=== PATIENT | female | born 1995 | race Caucasian/White ===

== ENCOUNTER 2017-01-22 22:49 | Inpatient (IN) | payer OTHER ==
[~2017-01-22] VITALS: Ht 160 cm; Wt 62.4 kg
[2017-01-23 00:30] VITALS: BP 133/61; PULSE 125; RESP 18
[2017-01-23 00:48] VITALS: Ht 160 cm; Wt 62.4 kg
[2017-01-23 01:48] VITALS: BP 115/56; RESP 20
[2017-01-23] MEDS ORDERED: HYDROCODONE/APAP (5/325) TAB PO PRN (02:00)
[2017-01-23] MEDS: HYDROCODONE/APAP (5/325) TAB PO PRN ×2 (02:13→20:12)
[2017-01-23] MEDS: DEXTROSE 5%-LR 1,000 ML IV SCH ×3 (02:14→15:50)
[2017-01-23] MEDS: CLINDAMYCIN 900 MG/D5W (PMX) 50 ML IVPB SCH ×4 (03:23→21:34)
[2017-01-23 04:00] VITALS: PULSE 91
[2017-01-23 06:20] LABS: BASOPHILS % 0.3 % (0.0-2.0); EOSINOPHILS # 0.1 10^3/ul (0.0-0.5); EOSINOPHILS % 0.9 % (0.0-7.0); HEMATOCRIT 29.6 % (37.0-47.0); HEMOGLOBIN 9.5 g/dl (12.0-16.0); LYMPHOCYTES # 1.3 10^3/ul (0.8-2.9); LYMPHOCYTES % 14.2 % (15.0-51.0); MEAN CORPUSCULAR HEMOGLOBIN 27.5 pg (29.0-33.0); MEAN CORPUSCULAR HGB CONC 32.1 g/dl (32.0-37.0); MEAN CORPUSCULAR VOLUME 85.8 fl (82.0-101.0); MEAN PLATELET VOLUME 10.7 fl (7.4-10.4); MONOCYTE # 0.4 10^3/ul (0.3-0.9); MONOCYTES % 4.8 % (0.0-11.0); NEUTROPHIL # 7.1 10^3/ul (1.6-7.5); NEUTROPHILS % 79.2 % (39.0-77.0); PLATELET COUNT 284 10^3/UL (140-415); RED BLOOD COUNT 3.45 10^6/ul (4.20-5.40); RED CELL DISTRIBUTION WIDTH 14.7 % (11.5-14.5); WHITE BLOOD COUNT 8.9 10^3/ul (4.8-10.8)
[2017-01-23 06:53] LABS: CALCIUM 8.2 mg/dl (8.4-10.2); CREATININE 0.61 mg/dl (0.44-1.00); POTASSIUM 3.6 mmol/L (3.5-5.1)
[2017-01-23] MEDS: ACETAMINOPHEN 325 MG TAB PO PRN ×2 (07:20→16:01)
[2017-01-23 07:39] VITALS: BP 102/58; RESP 14
--- NOTE | 2017-01-23 07:46 | HP ---
Date/Time of Note Date/Time of Note DATE: 01/23/17 TIME: 07:29 Assessment/Plan VTE Prophylaxis VTE Prophylaxis Intervention: ambulation VTE Contraindication Reason: anticoagulation not tolerated Lines/Catheters IV Catheter Type (from Nrs): Peripheral IV Central line still needed: No Urinary Cath still in place: No Assessment/Plan Chief Complaint/Hosp Course A: endometritis. S/P . P: Amp/Gent/Clinda IV antibiotics. Pt did not know her beta strep status so am treating as though she was positive and with 15-20% resistance to Cleocin felt I should add the Amp. Gentamicin dosing is once/day. If pt not improving would recc: repeat the CT scan with oral contrast with the idea of draining a fluid collection, if present. Problems: HPI/ROS Admit Date/Time Admit Date/Time Jan 23, 2017 at 00:13 Hx of Present Illness 21 y.o. s/p primary for distress/nuchal cord 01/08 at [place]. She is a patient of Dr Smith. Pt went to the ER at [place] last night and was transferred as she is capitated to [facility]. Pt reports that she started having abdominal pain as soon as she was discharged home and then started to have fevers up to 102 2 days ago. She did not go to her doctor as she did not have an appt yet. Pt denies nausea/vomiting/diarrhea or any other constitutional symptoms. She denies SANCHEZ's. WBC at [place] was 13.6, Hgb 11.4. She had a CT scan that appeared normal except for a questionable area 1.8 x 3.9 x 1.7 cm behind the uterus that was not able to be differentiated b/w a fluid collection vs a loop of bowel? Radiologist states a repeat pelvic CT with oral contrast would help delineate the area. ROS Constitutional: chills, febrile Neurologic: dizziness PMH/Family/Social Past Medical History Medical History: no pertinent history Past Surgical History 01/08 Family History Significant Family History: no pertinent family hx Social History Alcohol Use: none Smoking Status: Never smoker Drug Use: none Exam/Review of Systems Vital Signs Vitals Vital Signs Date Time Temp Pulse Resp B/P Pulse Ox O2 Delivery O2 Flow Rate FiO2 01/23/17 04:00 100.0 91 01/23/17 01:48 20 115/56 97 01/23/17 00:30 Room Air Intake and Output 01/22/17 01/22/17 01/23/17 15:00 23:00 07:00 Intake Total 425 ml Balance 425 ml Exam Constitutional: No oriented Gastrointestinal: surgical scars (Healed well without evidence of erythema, induration or swelling.), tender (2+ all over but no guarding or rebound.) 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 No erythema. Labs Result Diagram: 01/23/1751301/23/17513 Medications Medications Current Medications Acetaminophen 650 mg 650 mg Q4H PRN PO PAIN AND OR ELEVATED TEMP Last administered on 01/23/17 07:20; Admin Dose 650 MG; Start 01/23/17 at 02:00 Clindamycin HCl/ Dextrose 50 ml @ 50 mls/hr Q8 IVPB Last administered on 03:23; Admin Dose 50 MLS/HR; Start 01/23/17 at 02:30 Ceftriaxone Sodium 50 ml @ 100 mls/hr Q24H IVPB ; Start 01/23/17 at 17:00 Dextrose/Lactated Ringer's (D5-Lr) 1,000 ml @ 125 mls/hr Q8H IV Last administered on 01/23/17 02:14; Admin Dose 125 MLS/HR; Start 01/23/17 at 02: 00; Stop 01/24/17 at 02:00 Acetaminophen/ Hydrocodone Bitart ([place] (5/325)) 1 tab Q3H PRN PO PAIN LEVEL 1 -5; Start 01/23/17 at 02:00 Acetaminophen/ Hydrocodone Bitart ([place] (5/325)) 2 tab Q3H PRN PO PAIN LEVEL 6 -10 Last administered on 01/23/17 02:13; Admin Dose 2 TAB; Start 01/23/17 at 02:00 NGOC BAUTISTA MD Jan 23, 2017 07:41
[2017-01-23] MEDS ORDERED: GENTAMICIN 280 MG in SOD CHLORIDE 0.9% 100 ML IVPB SCH (10:00)
[2017-01-23] MEDS: AMPICILLIN 2 GM/NS (PMX) 100 ML IVPB SCH ×2 (12:29→19:01)
[2017-01-23 15:56] VITALS: BP 105/57; RESP 14
[2017-01-23] MEDS ORDERED: CEFTRIAXONE 1 GM/50 ML (PMX) 50 ML IVPB SCH (17:00)
[2017-01-23 19:26] VITALS: BP 104/51; RESP 18
[2017-01-24] MEDS: AMPICILLIN 2 GM/NS (PMX) 100 ML IVPB SCH ×6 (00:16→20:45)
[2017-01-24 02:00] VITALS: BP 94/52; RESP 18
[2017-01-24] MEDS: DEXTROSE 5%-LR 1,000 ML IV SCH (02:00)
[2017-01-24] MEDS: CLINDAMYCIN 900 MG/D5W (PMX) 50 ML IVPB SCH ×3 (05:19→22:28)
[2017-01-24 07:43] VITALS: BP 98/55; RESP 20
[2017-01-24] MEDS ORDERED: GENTAMICIN IV PER PHARMACY XX SCH (08:30)
--- NOTE | 2017-01-24 08:57 | PN ---
Date/Time of Note Date/Time of Note DATE: 01/24/17 TIME: 08:53 Assessment/Plan VTE Prophylaxis VTE Prophylaxis Intervention: ambulation, SCD's Lines/Catheters IV Catheter Type (from Nrs): Peripheral IV Urinary Cath still in place: No Assessment/Plan Chief Complaint/Hosp Course s/p c/s 2 weeks ago. endometritis r/o abdominal abscess Problems: Assessment/Plan Abx: Amp/Gent/Clinda CT scan still not read officially Subjective 24 Hr Interval Summary Free Text/Dictation Denies pain. had fever last pm, no BM for 2 days, but reports normal BM since c/ s. she is happy that her pain has resolved, but upset that she is from baby. the importance of treatment d/w pt Exam/Review of Systems Vital Signs Vitals Vital Signs Date Time Temp Pulse Resp B/P Pulse Ox O2 Delivery O2 Flow Rate FiO2 01/24/17 07:43 97.7 79 20 98/55 99 01/23/17 00:30 Room Air Intake and Output 01/23/17 01/23/17 01/24/17 15:00 23:00 07:00 Intake Total 757 ml 2175 ml 1150 ml Output Total 700 ml Balance 57 ml 2175 ml 1150 ml Exam Breast: no evidence of mastitis, soft, + engorged. she has breast pump next to her Abdomen: soft, mild tenderness Incision: looks well healed without any evidence of infection Back: no CVA tenderness Ext: no sign of DVT Results Result Diagram: 01/23/17 0514 01/23/17 0514 Results 24 hrs Laboratory Tests Test 01/23/17 20:10 Random Gentamicin Level < 0.6 Medications Medications Current Medications Acetaminophen 650 mg 650 mg Q4H PRN PO PAIN AND OR ELEVATED TEMP Last administered on 01/23/17 16:01; Admin Dose 650 MG; Start 01/23/17 at 02:00 Clindamycin HCl/ Dextrose (Cleocin 900 Mg/ D5W (Pmx)) 50 ml @ 50 mls/hr Q8 IVPB Last administered on 01/24/17 05:19; Admin Dose 50 MLS/HR; Start 01/23/17 at 02:30 Acetaminophen/ Hydrocodone Bitart ([place] (5/325)) 1 tab Q3H PRN PO PAIN LEVEL 1 -5; Start 01/23/17 at 02:00 Acetaminophen/ Hydrocodone Bitart 2 tab 2 tab Q3H PRN PO PAIN LEVEL 6-10 Last administered on 01/23/17 20:12; Admin Dose 2 TAB; Start 01/23/17 at 02:00 Gentamicin Sulfate 280 mg/ Sodium Chloride 107 ml @ 107 mls/hr DAILY IVPB Last administered on 01/23/17 09:47; Admin Dose 107 MLS/HR; Start 01/23/17 at 10:00 Ampicillin (Ampicillin 2 Gm/ NS (Pmx)) 100 ml @ 100 mls/hr Q6 IVPB Last administered on 01/24/17 06:29; Admin Dose 100 MLS/HR; Start 01/23/17 at 12: 00 POLLO LABOY MD Jan 24, 2017 08:57
[2017-01-24] MEDS: GENTAMICIN 100 MG/50 ML NS IVPB SCH ×2 (10:50→18:17)
[2017-01-24 14:16] VITALS: BP 98/53; RESP 20
[2017-01-24 20:02] VITALS: BP 91/52; RESP 18
[2017-01-24] MEDS: HYDROCODONE/APAP (5/325) TAB PO PRN (22:30)
[2017-01-25] MEDS: AMPICILLIN 2 GM/NS (PMX) 100 ML IVPB SCH ×6 (00:37→20:38)
[2017-01-25 02:00] VITALS: BP 100/50; RESP 18
[2017-01-25] MEDS: GENTAMICIN 100 MG/50 ML NS IVPB SCH ×2 (02:21→10:05)
[2017-01-25] MEDS: CLINDAMYCIN 900 MG/D5W (PMX) 50 ML IVPB SCH ×3 (05:52→22:00)
[2017-01-25 07:48] VITALS: BP 98/56; RESP 20
--- NOTE | 2017-01-25 08:36 | PN ---
Date/Time of Note Date/Time of Note DATE: 01/25/17 TIME: 08:33 Assessment/Plan VTE Prophylaxis VTE Prophylaxis Intervention: ambulation Lines/Catheters IV Catheter Type (from Nrsg): Peripheral IV Urinary Cath still in place: No Assessment/Plan Chief Complaint/Hosp Course s/p c/s 2 weeks ago. endometritis r/o abdominal abscess Afebrile for > 24 hours Problems: Assessment/Plan CT abdomen and pelvic in am with oral contrast with possible CT guided drainage of abscess CBC in am Subjective 24 Hr Interval Summary Free Text/Dictation she c/o LAP. denies fever Exam/Review of Systems Vital Signs Vitals Vital Signs Date Time Temp Pulse Resp B/P Pulse Ox O2 Delivery O2 Flow Rate FiO2 01/25/17 07:48 97.7 67 20 98/56 100 01/23/17 00:30 Room Air Intake and Output 01/24/17 01/24/17 01/25/17 15:00 23:00 07:00 Intake Total 250 ml 1860 ml 800 ml Output Total 450 ml Balance 250 ml 1410 ml 800 ml Exam NAD Abdomen: soft, mild tenderness Results Result Diagram: 01/23/17 0514 01/23/17 0514 Results 24 hrs Laboratory Tests Test 01/25/17 01:15 01/25/17 03:25 Gentamicin Level Trough 1.1 Gentamicin Level Peak 8.0 Medications Medications Current Medications Acetaminophen 650 mg 650 mg Q4H PRN PO PAIN AND OR ELEVATED TEMP Last administered on 01/23/17 16:01; Admin Dose 650 MG; Start 01/23/17 at 02:00 Clindamycin HCl/ Dextrose (Cleocin 900 Mg/ D5W (Pmx)) 50 ml @ 50 mls/hr Q8 IVPB Last administered on 01/25/17 05:52; Admin Dose 50 MLS/HR; Start 01/23/17 at 02:30 Acetaminophen/ Hydrocodone Bitart ([place] (5/325)) 1 tab Q3H PRN PO PAIN LEVEL 1 -5; Start 01/23/17 at 02:00 Acetaminophen/ Hydrocodone Bitart 2 tab 2 tab Q3H PRN PO PAIN LEVEL 6-10 Last administered on 01/24/17 22:30; Admin Dose 2 TAB; Start 01/23/17 at 02:00 Ampicillin (Ampicillin 2 Gm/ NS (Pmx)) 100 ml @ 100 mls/hr Q4 IVPB Last administered on 01/25/17t 08:05; Admin Dose 100 MLS/HR; Start 01/24/17 at 09: 00 Gentamicin Sulfate (Gentamicin Iv Per Pharmacy) GENTAMICIN PER PHARM... NOTE XX ; Start 01/24/17 at 08:30 POLLO LABOY MD Jan 25, 2017 08:36
[2017-01-25] MEDS ORDERED: BARIUM SULF 2% 450 ML BTL (BERRY SMOOTHIE) PO ONE (09:00)
[2017-01-25 13:38] VITALS: BP 118/74; RESP 20
[2017-01-25] MEDS: GENTAMICIN 80 MG/NS (PMX) 50 ML IVPB SCH (18:00)
[2017-01-25 19:36] VITALS: BP 94/57; RESP 18
[2017-01-25] MEDS: HYDROCODONE/APAP (5/325) TAB PO PRN (20:42)
[2017-01-26] MEDS: AMPICILLIN 2 GM/NS (PMX) 100 ML IVPB SCH ×6 (01:36→20:32)
[2017-01-26] MEDS: GENTAMICIN 80 MG/NS (PMX) 50 ML IVPB SCH ×3 (01:37→18:31)
[2017-01-26 02:00] VITALS: BP 97/54; RESP 18
[2017-01-26] MEDS: CLINDAMYCIN 900 MG/D5W (PMX) 50 ML IVPB SCH ×3 (05:33→21:46)
[2017-01-26 06:13] LABS: BASOPHILS % 0.7 % (0.0-2.0); EOSINOPHILS # 0.2 10^3/ul (0.0-0.5); EOSINOPHILS % 5.3 % (0.0-7.0); HEMATOCRIT 29.8 % (37.0-47.0); HEMOGLOBIN 9.5 g/dl (12.0-16.0); LYMPHOCYTES # 1.8 10^3/ul (0.8-2.9); LYMPHOCYTES % 39.4 % (15.0-51.0); MEAN CORPUSCULAR HEMOGLOBIN 27.1 pg (29.0-33.0); MEAN CORPUSCULAR HGB CONC 31.9 g/dl (32.0-37.0); MEAN CORPUSCULAR VOLUME 85.1 fl (82.0-101.0); MONOCYTE # 0.3 10^3/ul (0.3-0.9); MONOCYTES % 7.1 % (0.0-11.0); NEUTROPHIL # 2.1 10^3/ul (1.6-7.5); NEUTROPHILS % 46.8 % (39.0-77.0); PLATELET COUNT 338 10^3/UL (140-415); WHITE BLOOD COUNT 4.5 10^3/ul (4.8-10.8)
[2017-01-26 06:42] LABS: CREATININE 0.55 mg/dl (0.44-1.00)
[2017-01-26 08:00] VITALS: BP 88/45; RESP 18
[2017-01-26 13:38] VITALS: BP 95/49; RESP 14
--- NOTE | 2017-01-26 18:39 | RADRPT ---
PROCEDURE: CT abdomen and pelvis without contrast. CLINICAL INDICATION: Abdominal pain with recent TECHNIQUE: CT scan of the abdomen and pelvis without contrast was performed on a multi-slice CT [facility] . Sagittal and coronal reformatted images were obtained from the axial source images. One or more of the following dose reduction techniques were used: - Automated exposure control. - Adjustment of the mA and/or kV according to patient size. Use of iterative reconstruction technique. DLP 496.1 mGycm. CTDIvol 8.4 mGy COMPARISON: None. FINDINGS: The lung bases are clear. Postsurgical changes are seen in the anterior lower abdominal wall from recent . There is f at stranding is seen along the incisional site with no subcutaneous air, fluid, or visible hemorrhag e. There is also trace fat stranding within the abdominal wall musculature itself. There is a mildly enlarged edematous appearance the uterine parenchyma there is trace high-density f luid seen within the uterine cavity consistent with likely small hemorrhage without evidence of hem atoma. No evidence of hematoma around or anterior to the uterus. Trace fluid is present in the fat a nterior to the uterus. There is no evidence of fluid collection. There is uniform density of the liver with no focal lesion or biliary ductal dilatation. The gallbl adder is unremarkable without inflammation. The spleen is unremarkable without mass. The adrenal glands are within normal limits without mass. The kidneys are symmetric bilaterally without hydronephrosis or perinephric stranding. There are no renal or ureteral calculi. The pancreas is unremarkable without focal lesion or surrounding inflammatory changes. There is no bowel obstruction or focal bowel inflammation. The appendix is unremarkable. There is a fecal filled colon. There is no free air or free fluid. There are no enlarged lymph nodes. The aorta is unremarkable and there is no acute osseous abnormality. IMPRESSION: Surgical changes of is seen with trace fat stranding of subcutaneous fat. There is no evid ence of fluid collection, a significant inflammation, or hematoma within the pelvis. Trace hemorrhag ic fluid is seen within the uterine cavity with a trace amount of fluid seen anterior to the uterine margin. No evidence of bowel obstruction or inflammation. There is a fecal filled colon. Date that RPTAT: AA .Naun Linares MD, MD Date Time Electronically viewed and signed by .Naun Linares MD, MD on 01/26/2017 18:39 .J/
--- NOTE | 2017-01-26 18:59 | PN ---
Date/Time of Note Date/Time of Note DATE: 01/26/17 TIME: 18:54 Assessment/Plan VTE Prophylaxis VTE Prophylaxis Intervention: ambulation Lines/Catheters IV Catheter Type (from [facility]): Peripheral IV Urinary Cath still in place: No Assessment/Plan Chief Complaint/Hosp Course s/p c/s 2 weeks ago. endometritis r/o abdominal abscess Afebrile for > 24 hours Problems: Assessment/Plan consider d/c home in am Subjective 24 Hr Interval Summary Free Text/Dictation reports she feels better. less pain. Exam/Review of Systems Vital Signs Vitals Vital Signs Date Time Temp Pulse Resp B/P Pulse Ox O2 Delivery O2 Flow Rate FiO2 01/26/17 13:38 97.7 63 14 95/49 98 01/23/17 00:30 Room Air Intake and Output 01/25/17 01/25/17 01/26/17 15:00 23:00 07:00 Intake Total 200 ml 2270 ml 900 ml Output Total 1050 ml Balance 200 ml 1220 ml 900 ml Exam Constitutional: alert, oriented, well developed Psych: nl mood/affect, no complaints, other Head: other (not examined) Eyes: EOMI, icteric, nl conjunctiva, nl lids, nl sclera, other ENMT: nl external ears & nose, nl lips & teeth, nl nasal mucosa & septum Neck: non-tender, other, supple Respiratory: clear to auscultation, normal air movement Cardiovascular: nl pulses, regular rate and rhythm Gastrointestinal: nl liver, spleen, non-tender, other (soft and mild tenderness ), soft Musculoskeletal: nl extremities to inspection, nl gait and stance Extremities: normal pulses 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, nl mental status, nl speech, nl strength Skin: nl turgor, No rash or lesions Lymph: nl lymph nodes Results Result Diagram: 01/26/1752601/26/17526 Results 24 hrs Laboratory Tests Test 01/26/17 05:27 White Blood Count 4.5 #L Red Blood Count 3.50 L Hemoglobin 9.5 L Hematocrit 29.8 L Mean Corpuscular Volume 85.1 Mean Corpuscular Hemoglobin 27.1 L Mean Corpuscular Hemoglobin Concent 31.9 L Red Cell Distribution Width 15.0 H Platelet Count 338 Mean Platelet Volume 11.0 H Neutrophils % 46.8 Lymphocytes % 39.4 Monocytes % 7.1 Eosinophils % 5.3 Basophils % 0.7 Nucleated Red Blood Cells % 0.0 Neutrophils # 2.1 Lymphocytes # 1.8 Monocytes # 0.3 Eosinophils # 0.2 Basophils # 0.0 Nucleated Red Blood Cells # 0.0 Blood Urea Nitrogen 10 Creatinine 0.55 Medications Medications Current Medications Acetaminophen 650 mg 650 mg Q4H PRN PO PAIN AND OR ELEVATED TEMP Last administered on 01/23/17 16:01; Admin Dose 650 MG; Start 01/23/17 at 02:00 Clindamycin HCl/ Dextrose (Cleocin 900 Mg/ D5W (Pmx)) 50 ml @ 50 mls/hr Q8 IVPB Last administered on 01/26/17 15:17; Admin Dose 50 MLS/HR; Start 01/23/17 at 02:30 Acetaminophen/ Hydrocodone Bitart ([place] (5/325)) 1 tab Q3H PRN PO PAIN LEVEL 1 -5; Start 01/23/17 at 02:00 Acetaminophen/ Hydrocodone Bitart 2 tab 2 tab Q3H PRN PO PAIN LEVEL 6-10 Last administered on 01/25/17 20:42; Admin Dose 2 TAB; Start 01/23/17 at 02:00 Ampicillin (Ampicillin 2 Gm/ NS (Pmx)) 100 ml @ 100 mls/hr Q4 IVPB Last administered on 01/26/17 17:18; Admin Dose 100 MLS/HR; Start 01/24/17 at 09: 00 Gentamicin Sulfate GENTAMICIN PER PHARM... NOTE XX ; Start 01/24/17 at 08:30 Gentamicin Sulfate (Gentamicin) 50 ml @ 104 mls/hr Q8H IVPB Last administered on 01/26/17 18:31; Admin Dose 104 MLS/HR; Start 01/25/17 at 18:00 Miscellaneous Information (*Rx Drug Level Order Reminder*) GENTAMICIN TROUGH AT 0... ONCE XX ; Start 01/27/17 at 08:00; Stop 01/27/17 at 12:00 POLLO LABOY MD Jan 26, 2017 18:59
[2017-01-26] MEDS: HYDROCODONE/APAP (5/325) TAB PO PRN (19:47)
[2017-01-26 20:00] VITALS: BP 99/52; RESP 18
[2017-01-27] MEDS: AMPICILLIN 2 GM/NS (PMX) 100 ML IVPB SCH ×5 (00:47→17:17)
[2017-01-27] MEDS: GENTAMICIN 80 MG/NS (PMX) 50 ML IVPB SCH ×3 (02:05→18:59)
[2017-01-27] MEDS: HYDROCODONE/APAP (5/325) TAB PO PRN (02:09)
[2017-01-27 02:26] VITALS: BP 98/53; RESP 19
[2017-01-27] MEDS: CLINDAMYCIN 900 MG/D5W (PMX) 50 ML IVPB SCH ×2 (06:04→14:27)
--- NOTE | 2017-01-27 07:55 | DS ---
Date/Time of Note Date/Time of Note DATE: 01/27/17 TIME: 07:50 Discharge Summary Admission/Discharge Info Admit Date/Time Jan 23, 2017 at 00:13 Discharge Date/Time 01/27/2017 Discharge Diagnosis Endometritis Patient Condition: Good Consults none Procedures IV Abx. CT scan Hx of Present Illness 21 y.o. s/p primary for distress/nuchal cord 01/08 at [place]. She is a patient of Dr Smith. Pt went to the ER at [place] last night and was transferred as she is capitated to [facility]. Pt reports that she started having abdominal pain as soon as she was discharged home and then started to have fevers up to 102 2 days ago. She did not go to her doctor as she did not have an appt yet. Pt denies nausea/vomiting/diarrhea or any other constitutional symptoms. She denies SANCHEZ's. WBC at [place] was 13.6, Hgb 11.4. She had a CT scan that appeared normal except for a questionable area 1.8 x 3.9 x 1.7 cm behind the uterus that was not able to be differentiated b/w a fluid collection vs a loop of bowel? Radiologist states a repeat pelvic CT with oral contrast would help delineate the area. she received IV Amp/Gent/Clinda. Repeat CT was normal. her pain resolved Hospital Course she received IV Amp/Gent/Clinda. Repeat CT was normal. her pain resolved, fever resolved. normal WBC she has benign exam today. Abdomen is soft and not tender I told patient to check temp TID for 10 days and go to ER if Temp > 100 Home Meds No Active Prescriptions or Reported Meds Primary Care Provider [facility] Time spent on discharge: > 30 minutes POLLO LABOY MD Jan 27, 2017 07:55
[2017-01-27 08:02] VITALS: BP 92/52; RESP 14
[2017-01-27 13:26] VITALS: BP 101/54; RESP 14
== END 2017-01-27 20:35 | disposition home or self-care (01) | DRG 776 ==
LOC: MS2 01-23 00:13
PROVIDERS: ADMIT Obstetrics & Gynecology; ATTEND Obstetrics & Gynecology
DX: O86.12 Endometritis following delivery (principal); N71.9 Inflammatory disease of uterus, unspecified
CPT/HCPCS: 74176; 80048; 80170; 82565; 84520; 85025; 87081; J0290; J1580; J7121

== ENCOUNTER 2018-10-28 11:35 | Emergency (ER) | payer OTHER ==
[~2018-10-28] VITALS: Ht 160 cm; Wt 58.4 kg
[~2018-10-28 11:35] MED LIST: ACET500C5 PO; CEPH-442 PO; CEPH-443 PO; HYDR-4011 PO; NO MEDS
[2018-10-28 11:39] VITALS: BP 120/57; PULSE 80; RESP 18; Ht 160 cm; Wt 58.4 kg
--- NOTE | 2018-10-28 12:42 | ERD ---
ER Documentation Chief Complaint Chief Complaint vag bleed x today 6 weeks HPI Patient is a 23-year-old female, G2, P1, approximately 6 weeks , presents to the ER for concerns of vaginal bleeding which started today. Patient reports spotting. She reports minimal bleeding. Patient has no fevers or chills. Patient has no nausea or vomiting. Patient reports occasional pelvic cramps. Patient denies any dysuria or frequency, urgency or hematuria. No recent travel. No sick contacts. 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 Patient's last menstrual period was 6-17-19. ROS All systems reviewed and are negative except as per history of present illness. Medications Home Meds Reported Medications [No Meds] No Conflict Check 08/19/17 Allergies Allergies: Coded Allergies: No Known Allergy (Unverified , 08/19/17) PMhx/Soc History of Surgery: Yes () Anesthesia Reaction: No Hx Neurological Disorder: No Hx Respiratory Disorders: No Hx Cardiac Disorders: No Hx Psychiatric Problems: No Hx Miscellaneous Medical Probl: No Hx Alcohol Use: No Hx Substance Use: No Hx Tobacco Use: No Smoking Status: Current every day smoker FmHx Family History: No diabetes Physical Exam Vitals Vital Signs Date Temp Pulse Resp B/P (MAP) Pulse Ox O2 O2 Flow FiO2 Time Delivery Rate 10/28/18 97.8 80 18 120/57 99 11:39 (78) Physical Exam GENERAL: Well-developed, well-nourished female. Appears in no acute distress. HEAD: Normocephalic, atraumatic. EYES: Pupils are equally reactive bilaterally. EOMs grossly intact. No conjunctival erythema. NECK: Supple. No meningismus. Normal range of motion of the neck. LUNG: Clear to auscultation bilaterally. No rhonchi, wheezing, rales or coarse breath sounds. HEART: Regular rate and rhythm. No murmurs, rubs or gallops. ABDOMEN: Soft, nontender, and nondistended. Positive bowel sounds in all four quadrants. No rebound tenderness, no guarding. (-) McBurney's point tenderness. No CVA tenderness. EXTREMITIES: Equal pulses bilaterally. No peripheral clubbing, cyanosis or edema. No unilateral leg swelling. NEUROLOGIC: Alert and oriented. Moving all four extremities without any difficulty. Normal speech. Steady gait. SKIN: Normal color. Warm and dry. No rashes or lesions. Result Diagram: 10/28/18 1220 Results 24 hrs Laboratory Tests Test 10/28/18 12:20 White Blood Count 7.1 10^3/ul Red Blood Count 4.74 10^6/ul Hemoglobin 14.2 g/dl Hematocrit 43.7 % Mean Corpuscular Volume 92.2 fl Mean Corpuscular Hemoglobin 30.0 pg Mean Corpuscular Hemoglobin Concent 32.5 g/dl Red Cell Distribution Width 12.7 % Platelet Count 236 10^3/UL Mean Platelet Volume 11.7 fl Immature Granulocytes % 0.300 % Neutrophils % 71.4 % Lymphocytes % 21.3 % Monocytes % 5.8 % Eosinophils % 0.8 % Basophils % 0.4 % Nucleated Red Blood Cells % 0.0 /100WBC Immature Granulocytes # 0.020 10^3/ul Neutrophils # 5.1 10^3/ul Lymphocytes # 1.5 10^3/ul Monocytes # 0.4 10^3/ul Eosinophils # 0.1 10^3/ul Basophils # 0.0 10^3/ul Nucleated Red Blood Cells # 0.0 10^3/ul Urine Color YELLOW Urine Clarity CLOUDY Urine pH 6.0 Urine Specific [place] 1.028 Urine Ketones NEGATIVE mg/dL Urine Nitrite NEGATIVE mg/dL Urine Bilirubin NEGATIVE mg/dL Urine Urobilinogen NEGATIVE mg/dL Urine Leukocyte Esterase 1+ Alexandre/ul Urine Microscopic RBC 64 /HPF Urine Microscopic WBC 24 /HPF Urine Squamous Epithelial Cells MANY /HPF Urine Mucus MANY /HPF Urine Hemoglobin 3+ mg/dL Urine Glucose NEGATIVE mg/dL Urine Total Protein 1+ mg/dl Beta HCG, Quantitative 4958.0 mIU/ml Procedures/MDM ED COURSE: The patient was stable throughout ED course. I kept the patient and/or family informed of laboratory and diagnostic imaging results throughout the ED course. DIAGNOSTIC IMAGING: Read by radiologist. Patient: BRENDEN BURCH : 1995 Age: 23 Sex: F MR #: [id number] DOS: 10/28/18 1207 Ordering MD: ELLY MORATAYA PA-C Location: [facility] Room/Bed: PROCEDURE: US OB. CLINICAL INDICATION: Vaginal bleeding. TECHNIQUE: Transabdominal and transvaginal sonographic evaluation of the uterus was performed. COMPARISON: None. FINDINGS: There is a single intrauterine gestation containing yolk sac. There is no visible pole. Mean sac diameter measures 6 mm. Estimated gestational age based on this examination is 5 weeks and 1 day +/- 3 days. Estimated date of confinement based on this examination is 06/29/2019. Right ovary measures 3 x 1.9 x 2 cm. Left ovary measures 3.4 x 2.1 x 2.8 cm. There is a 1.7 cm complex left ovarian cyst, may represent hemorrhagic corpus luteal cyst. No suspicious adnexal masses are seen. There is no free pelvic fluid. IMPRESSION: 1. Single intrauterine gestation containing yolk sac with estimated gestational age of 5 weeks and 1 day +/- 3 days. No visible pole. Recommend follow-up pelvic sonogram in 7 - 10 days for reevaluation and assess viability. 2. Complex left ovarian cyst, suggestive of hemorrhagic corpus luteal cyst. RPTAT:HAJM Physician Manjit Date Time Electronically viewed and signed by Dinora Roman Physician on 10/28/2018 14:58 RM/ CC: ELLY MORATAYA PA-C [id number] PROCEDURES: None. MEDICAL DECISION MAKING: This is a 23-year-old female, G2, P1, presents the ER for concerns of vaginal bleeding. Vital signs were reviewed. Patient was afebrile. Patient was hemodynamically stable. Urine test was positive. Patient's beta-hCG is 4958. Patient blood type was noted to be O+, no indication for RhoGam at this time. CBC showed no evidence of systemic infection or severe anemia. Pelvic US showed 1. Single intrauterine gestation containing yolk sac with estimated gestational age of 5 weeks and 1 day +/- 3 days. No visible pole. Recommend follow-up pelvic sonogram in 7 - 10 days for reevaluation and assess viability. 2. Complex left ovarian cyst, suggestive of hemorrhagic corpus luteal cyst. Given these findings, the patients presentation is most consistent with threatened and UTI. I low suspicion for ectopic , ruptured ectopic , molar , subchorionic hematoma, spontaneous , incomplete , complete , missed , placental abruption, placental previa, vasa previa, uterine rupture, anembyronic . Patient was nontoxic, [id number] prior to discharge. Patient advised to return in 2 days for repeat beta-hCG and/or ultrasound. PRESCRIPTIONS: Keflex DISCHARGE: At this time, patient is stable for discharge and outpatient management. I had a conversation at length with the patient about the concerns of vaginal bleeding during the 1st trimester of . Patient and/or family understands that her vaginal bleeding can be a normal finding or a sign of miscarriage. I have instructed the patient to follow-up with her OBGYN in 1-2 days for further monitoring including a repeat b-HCG level. I have instructed the patient to promptly return to the ER at any time for any new or worsening symptoms including increased pain, nausea, vomiting, continued bleeding, weakness, syncope or fever. The patient and/or family expressed understanding of and agreement with this plan. All questions were answered. Home care instructions were provided. Disclaimer: Inadvertent spelling and grammatical errors are likely due to EHR/dictation software use and do not reflect on the overall quality of patient care. Also, please note that the electronic time recorded on this note does not necessarily reflect the actual time of the patient encounter. Departure Diagnosis: Primary Impression: Vaginal bleeding in patient at less than 20 weeks ges... Additional Impression: UTI (urinary tract infection) Urinary tract infection type: site unspecified Hematuria presence: without hematuria Qualified Codes: N39.0 - Urinary tract infection, site not specified Condition: Fair Patient Instructions: Bleeding During Early Referrals: [facility] (PCP) Additional Instructions: Call your primary care doctor TOMORROW for an appointment during the next 1-2 days.See the doctor sooner or return here if your condition worsens before your appointment time. ELLY MORATAYA PA-C Oct 28, 2018 12:42
== END 2018-10-28 15:22 | disposition home or self-care (01) ==
LOC: FTE 11:35
DX: O20.9 Hemorrhage in early pregnancy, unspecified (principal); O23.41 Unspecified infection of urinary tract in pregnancy, first trimester; O99.331 Smoking (tobacco) complicating pregnancy, first trimester; F17.210 Nicotine dependence, cigarettes, uncomplicated; R10.2 Pelvic and perineal pain; Z3A.01 Less than 8 weeks gestation of pregnancy
CPT/HCPCS: 36415; 76801; 76817; 81001; 84702; 85025; 86900; 86901; 87086; Z7502

== ENCOUNTER 2018-10-30 19:24 | Emergency (ER) | payer OTHER ==
[~2018-10-30] VITALS: Ht 157.5 cm; Wt 60.4 kg
[2018-10-30 19:29] VITALS: Ht 157.5 cm; Wt 60.4 kg
[2018-10-30] MEDS ORDERED: HYDROCODONE/APAP (5/325) TAB PO STA (20:11)
--- NOTE | 2018-10-30 20:17 | ERD ---
ER Documentation Chief Complaint Chief Complaint AP AND VAGINAL BLEEDING X 3 DAYS. 5 WKS . HPI 23-year-old G2, P1 female with last menstrual period of September 18 presents with 3- day complaint of vaginal bleeding and cramping. States that she is gone through 6 pads in the last 3 days but when he has intensified today. States that she was just on the bathroom and thinks that she might of passed products of conception as there is what appears to be a small embryo on the toilet. Patient denies any fevers, chills, dysuria, hematuria, lightheadedness, palpitations, chest pain, shortness of breath. States that she does have an OB. ROS All systems reviewed and are negative except as per history of present illness. Medications Home Meds Active Scripts Hydrocodone/Acetaminophen ([place] 5-325 Tablet) 1 Each Tablet, 1-2 TAB PO Q6H PRN for PAIN, #15 TAB Prov:LESLYE NOEL 10/30/18 Cephalexin* (Keflex*) 500 Mg Capsule, 500 MG PO BID for 5 Days, CAP Prov:ELLY MORATAYA PA-C 10/28/18 Reported Medications [No Meds] No Conflict Check 08/19/17 Discontinued Scripts Cephalexin* (Keflex*) 250 Mg Capsule, 250 MG PO Q8, #21 CAP Prov:ELLY MORATAYA PA-C 10/28/18 Cephalexin* (Keflex*) 500 Mg Capsule, 250 MG PO QID for 5 Days, CAP Prov:ELLY MORATAYA PA-C 10/28/18 Allergies Allergies: Coded Allergies: No Known Allergy (Unverified , 08/19/17) PMhx/Soc History of Surgery: Yes () Anesthesia Reaction: No Hx Neurological Disorder: No Hx Respiratory Disorders: No Hx Cardiac Disorders: No Hx Psychiatric Problems: No Hx Miscellaneous Medical Probl: No Hx Alcohol Use: No Hx Substance Use: No Hx Tobacco Use: No FmHx Family History: No diabetes, No coronary disease, No other Physical Exam Vitals Vital Signs Date Temp Pulse Resp B/P (MAP) Pulse Ox O2 O2 Flow FiO2 Time Delivery Rate 10/30/18 97.7 74 16 109/56 99 Room Air 22:59 (73) 10/30/18 98.6 86 20 129/58 98 19:29 (81) Physical Exam Const: No acute distress Head: Atraumatic Eyes: Normal Conjunctiva ENT: Normal External Ears, Nose and Mouth. Neck: Full range of motion. No meningismus. Resp: Clear to auscultation bilaterally Cardio: Regular rate and rhythm, no murmurs Abd: Soft, non tender, non distended. Normal bowel sounds Skin: No petechiae or rashes Back: No midline or flank tenderness Ext: No cyanosis, or edema Neur: Awake and alert Psych: Normal Mood and Affect Result Diagram: 10/30/182044 Results 24 hrs Laboratory Tests Test 10/30/18 20:45 10/30/18 20:49 White Blood Count 8.3 10^3/ul Red Blood Count 4.58 10^6/ul Hemoglobin 13.5 g/dl Hematocrit 41.6 % Mean Corpuscular Volume 90.8 fl Mean Corpuscular Hemoglobin 29.5 pg Mean Corpuscular Hemoglobin Concent 32.5 g/dl Red Cell Distribution Width 12.7 % Platelet Count 235 10^3/UL Mean Platelet Volume 11.7 fl Immature Granulocytes % 0.200 % Neutrophils % 71.3 % Lymphocytes % 21.7 % Monocytes % 4.8 % Eosinophils % 1.6 % Basophils % 0.4 % Nucleated Red Blood Cells % 0.0 /100WBC Immature Granulocytes # 0.020 10^3/ul Neutrophils # 5.9 10^3/ul Lymphocytes # 1.8 10^3/ul Monocytes # 0.4 10^3/ul Eosinophils # 0.1 10^3/ul Basophils # 0.0 10^3/ul Nucleated Red Blood Cells # 0.0 10^3/ul Beta HCG, Quantitative 7744.9 mIU/ml Urine Color RED Urine Clarity CLOUDY Urine pH 7.0 Urine Specific [place] 1.021 Urine Ketones NEGATIVE mg/dL Urine Nitrite NEGATIVE mg/dL Urine Bilirubin NEGATIVE mg/dL Urine Urobilinogen 1+ mg/dL Urine Leukocyte Esterase NEGATIVE Alexandre/ul Urine Microscopic RBC > 182 /HPF Urine Microscopic WBC 124 /HPF Urine Squamous Epithelial Cells MANY /HPF Urine Mucus FEW /HPF Urine Hemoglobin 3+ mg/dL Urine Glucose NEGATIVE mg/dL Urine Total Protein 2+ mg/dl Current Medications Medications Dose Sig/Jeferson Start Time Status Last (Trade) Ordered Route PRN Stop Time Admin Dose Reason Admin 1 tab ONCE STAT 10/30/18 DC 10/30/18 Acetaminophen PO 20:11 20:43 / 10/30/18 20:12 Hydrocodone Bitart ([place] (5/)) Procedures/MDM DIAGNOSTIC IMAGING REPORT Patient: BRENDEN BURCH : 1995 Age: 23 Sex: F MR #: [id number] DOS: 10/30/182010 Ordering MD: LESLYE NOEL Location: [facility] Room/Bed: PROCEDURE: US Pelvis. CLINICAL INDICATION: vaginal bleeding TECHNIQUE: Multiple sonographic images of the pelvis were obtained utilizing a transabdominal technique. The images were reviewed on a PACS workstation. COMPARISON: US PELVIS 10/28/2018 FINDINGS: The uterus is normal in size and demonstrates a normal appearance of the myometrium. The uterus measures 8.3 x 4.2 x 5.0 cm in size. The endometrial stripe is heterogeneous in appearance and has the thickness of 10 mm. Previously seen gestational sac is no longer visualized. The ovaries are normal in size and echogenicity. Normal Doppler flow is identified in both ovaries. The right ovary measures 3.4 x 1.8 x 2.4 cm. The left ovary measures 2.6 x 1.7 x 2.4 cm. No free fluid is present within the pelvis.. RPTAT: AA IMPRESSION: Previously seen gestational sac is no longer visualized. The findings likely represent an in progress. Heterogeneous endometrium. Follow-up ultrasound and HCG levels is recommended. .Jhonathan Alatorre MD, MD Date Time Electronically viewed and signed by .Jhonathan Alatorre MD, MD on 10/30/2018 2 1:02 .S/ CC: LESLYE NOEL [id number] MDM: Ultrasound no longer showed any gestational sac indicating that most likely the had already occurred. This tissue sample was found in the toilet of the hospital and was sent to pathology for analysis. Labs WNL. US showed no retained products. At this point I have low suspicion for ectopic based on results of US, hemodynamic stability, physical exam and patient history. I have low suspicion for septic , pyelonephritis, placenta abrupta, appendicitis, cholecystitis, bowel obstruction, ovarian torsion, symptomatic anema, PID, surgical abdomen, hemorrhage, or other life threatening conditions based on patient history, physical exam, and lab/imaging results. At time of discharge patient was hemodynamically stable. At this time, patient is stable for discharge and outpatient management. I have instructed the patient to follow-up with his/her primary care physician in 1-2 days a well as return to ER in 48 hours for repeat US and bloodwork. I have discussed with the patient the possibility of needing to see a specialist for further workup and imaging studies if symptoms persist. I have instructed the patient to promptly return to the ER for any new or worsening symptoms including but not limited to increased pain, fever, nausea, vomiting, weakness or LOC. The patient and/or family expressed understanding of and agreement with this plan. All questions were answered. Home care instructions were provided. DISCLAIMER: Inadvertent spelling and grammatical errors are likely due to EHR/dictation software use and do not reflect on the overall quality of patient care. Also, please note that the electronic time recorded on this note does not necessarily reflect the actual time of the patient encounter. Departure Diagnosis: Primary Impression: Missed Condition: Phong LESLYE NOEL Oct 30, 2018 20:17
[2018-10-30 22:59] VITALS: BP 109/56; PULSE 74; RESP 16
== END 2018-10-30 23:00 | disposition home or self-care (01) ==
LOC: FTE 19:24
DX: O02.1 Missed abortion (principal)
CPT/HCPCS: 36415; 76801; 81001; 84702; 85025; 88305; Z7502; Z7610

== ENCOUNTER 2018-11-01 18:16 | Emergency (ER) | payer OTHER ==
[~2018-11-01] VITALS: Ht 162.6 cm; Wt 61.3 kg
[~2018-11-01 18:16] MED LIST changes: -CEPH-442 PO
[2018-11-01 18:36] VITALS: Ht 162.6 cm; Wt 61.3 kg
[2018-11-01] MEDS ORDERED: ACETAMINOPHEN 500 MG TAB PO STA (20:23)
[2018-11-01] MEDS ORDERED: SOD CHLORIDE 0.9% 1,000 ML IV ONE (20:30)
--- NOTE | 2018-11-01 20:33 | ERD ---
ER Documentation Chief Complaint Chief Complaint told to come back for repeat exam, dx missed ab 10/30/18 HPI This is a 23-year-old female presents emergency department with complaints of va ginal bleeding. Stated that she change more than 4 vaginal plaques in the last 24 hours. Was here on October 30, 2018 for the same reason and was informed that she has missed , was instructed to come back here today for a repeat ultrasound and blood works. LMP: 09/18/2017. REAGAN: 06/26/2019. A1. Denies headache, head injury, loss of consciousness, dizziness, neck pain, neck stiffness, throat pain, difficulty swallowing, difficulty breathing lying flat, shoulder pain, chest pain, back pain, abdominal pain, nausea, vomiting, constipation, diarrhea, urinary symptoms, loss of bowel and bladder control, trauma, injury, falls, difficulty walking due to pain, numbness or tingling sensation, calf pain, recent travel, recent major surgery in the last 3 weeks, calf pain, recent long travel, recent exposure to any illness, recent antibiotic use in the last 3 months, fever, chills, seizures. Past medical history: Denies. Surgical history: x1. Social: Denies smoking, use of alcoholic beverages, use of illegal drugs. ROS All systems reviewed and are negative except as per history of present illness. Medications Home Meds Active Scripts Acetaminophen* (Tylophen*) 500 Mg Capsule, 1 CAP PO Q6H PRN for PAIN AND OR ELEVATED TEMP, #20 CAP Prov:ALEXX BA 11/01/18 Hydrocodone/Acetaminophen ([place] 5-325 Tablet) 1 Each Tablet, 1-2 TAB PO Q6H PRN for PAIN, #15 TAB Prov:LESLYE NOEL 10/30/18 Cephalexin* (Keflex*) 500 Mg Capsule, 500 MG PO BID for 5 Days, CAP Prov:ELLY MORATAYA PA-C 10/28/18 Reported Medications [No Meds] No Conflict Check 08/19/17 Allergies Allergies: Coded Allergies: No Known Allergy (Unverified , 08/19/17) PMhx/Soc History of Surgery: Yes () Anesthesia Reaction: No Hx Neurological Disorder: No Hx Respiratory Disorders: No Hx Cardiac Disorders: No Hx Psychiatric Problems: No Hx Miscellaneous Medical Probl: No Hx Alcohol Use: No Hx Substance Use: No Hx Tobacco Use: No Smoking Status: Never smoker Physical Exam Vitals Physical Exam Const: No acute distress Head: Atraumatic Eyes: Normal Conjunctiva. Eyeballs are not sunken. No signs of severe dehydration. ENT: Normal External Ears, Nose and Mouth. Neck: Full range of motion. No meningismus. No nuchal rigidity. No signs of meningeal irritation. Resp: Clear to auscultation bilaterally. No accessory muscle use in breathing. Cardio: Regular rate and rhythm, no murmurs Abd: Soft, non tender, non distended. Normal bowel sounds. Negative Rush sign. Negative [place] sign (heel jar test). Negative psoas sign. Negative Rovsing sign. Able to jump 10 times without developing lower abdominal pain. Ambulatory with steady gait and without pain to lower abdomen. Skin: No petechiae or rashes. Color appears normal for ethnicity. No skin tenting. No signs of severe dehydration. Back: No midline or flank tenderness. No CVA tenderness. Ext: No cyanosis, or edema Neur: Awake and alert. No neurological deficits. Psych: Normal Mood and Affect Results 24 hrs Laboratory Tests Test 11/01/18 20:42 White Blood Count 7.3 10^3/ul Red Blood Count 4.44 10^6/ul Hemoglobin 13.2 g/dl Hematocrit 40.9 % Mean Corpuscular Volume 92.1 fl Mean Corpuscular Hemoglobin 29.7 pg Mean Corpuscular Hemoglobin Concent 32.3 g/dl Red Cell Distribution Width 12.4 % Platelet Count 225 10^3/UL Mean Platelet Volume 11.5 fl Immature Granulocytes % 0.300 % Neutrophils % 57.3 % Lymphocytes % 31.7 % Monocytes % 7.4 % Eosinophils % 3.0 % Basophils % 0.3 % Nucleated Red Blood Cells % 0.0 /100WBC Immature Granulocytes # 0.020 10^3/ul Neutrophils # 4.2 10^3/ul Lymphocytes # 2.3 10^3/ul Monocytes # 0.5 10^3/ul Eosinophils # 0.2 10^3/ul Basophils # 0.0 10^3/ul Nucleated Red Blood Cells # 0.0 10^3/ul Urine Color YELLOW Urine Clarity SLIGHTLY CLOUDY Urine pH 6.0 Urine Specific [place] 1.021 Urine Ketones NEGATIVE mg/dL Urine Nitrite NEGATIVE mg/dL Urine Bilirubin NEGATIVE mg/dL Urine Urobilinogen NEGATIVE mg/dL Urine Leukocyte Esterase NEGATIVE Alexandre/ul Urine Microscopic RBC 37 /HPF Urine Microscopic WBC 5 /HPF Urine Squamous Epithelial Cells FEW /HPF Urine Mucus MODERATE /HPF Urine Hemoglobin 3+ mg/dL Urine Glucose NEGATIVE mg/dL Urine Total Protein NEGATIVE mg/dl Sodium Level 141 mmol/L Potassium Level 3.6 mmol/L Chloride Level 105 mmol/L Carbon Dioxide Level 27 mmol/L Anion Gap 9 Blood Urea Nitrogen 11 mg/dl Creatinine 0.60 mg/dl Est Glomerular Filtrat Rate mL/min > 60 mL/min Glucose Level 76 mg/dl Calcium Level 9.4 mg/dl Total Bilirubin 0.3 mg/dl Direct Bilirubin 0.00 mg/dl Indirect Bilirubin 0.3 mg/dl Aspartate Amino Transf (AST/SGOT) 20 IU/L Alanine Aminotransferase (ALT/SGPT) 17 IU/L Alkaline Phosphatase 77 IU/L Total Protein 7.2 g/dl Albumin 4.5 g/dl Globulin 2.70 g/dl Albumin/Globulin Ratio 1.66 Amylase Level 129 U/L Lipase 63 U/L Beta HCG, Quantitative 731.0 mIU/ml Current Medications Medications Dose Sig/Jeferson Start Time Status Last (Trade) Ordered Route PRN Stop Time Admin Dose Reason Admin 500 mg ONCE STAT 11/01/18 DC 11/01/18 Acetaminophen PO 20:23 20:38 (Tylenol 11/01/18 20:27 Tab) Sodium 1,000 ml @ Q1H ONCE 11/01/18 DC 11/01/18 Chloride 1,000 mls/hr IV 20:30 20:39 11/01/18 21:29 Procedures/MDM Diagnostic tests: Urinalysis: Reviewed. Culture urine: Sent. hCG quantitative: 731.0 Type and Rh: O Positive. Blood works: Reviewed. OB ultrasound: No intrauterine gestation seen. Question spontaneous versus viable very early intrauterine . Ectopic cannot be ruled out. Correlation with quantitative serial beta HCG levels is suggested. Treatment: Tylenol p.o. Saline lock. Normal saline IV bolus. Re-evaluation: Denies headache, chest pain, back pain, abdominal pain, pelvic pain. Negative Rush sign. Negative [place] sign (heel jar test). Negative Zosyn. Negative Rovsing sign. No CVA tenderness. Stated that she feels much better at this time and that she is ready to go home. Stated that she is comfortable to go home. Differential diagnosis I have low suspicion for ectopic , hemorrhaging, sepsis, pyelonephritis, nephro phthisis, obstructing kidney stones, septic stone, pancreatitis, cholecystitis, bowel obstruction, diverticulitis. Final diagnosis: Miscarriage. Prescription: Tylenol. Follow-up with pit hand in the next 24-48 hours. Come back here in the emergency department for any new symptoms or any worsening symptoms. All questions and concerns were answered. Patient and family members verbalized understanding and agreed with plan of care. Hemodynamically stable on discharge. Departure Diagnosis: Primary Impression: Miscarriage Condition: Stable Additional Instructions: Follow-up with pit hand in the next 24-48 hours. Come back here in the emergency department for any new symptoms or any worsening symptoms. ALEXX BA Nov 01, 2018 20:33
[2018-11-01 22:27] VITALS: BP 99/52; PULSE 73; RESP 17
== END 2018-11-01 22:28 | disposition home or self-care (01) ==
LOC: FTE 18:16
DX: O03.9 Complete or unspecified spontaneous abortion without complication (principal)
CPT/HCPCS: 76801; 80053; 81001; 82150; 83690; 84702; 85025; 86900; 86901; 87086; J7030; Z7610